=== PATIENT | female | born 1980 | race African-American/Black ===

== ENCOUNTER 2018-05-13 06:21 | Inpatient (IN) ==
[2018-05-13] MEDS ORDERED: MEPERIDINE 50 MG/1 ML VIAL IV PRN (06:35)
[2018-05-13] MEDS ORDERED: ONDANSETRON 4 MG/2 ML VIAL IV PRN ×2 (06:35→20:21)
[2018-05-13 07:00] LABS: Basophils % 0.3 % (0.0-0.8); Eosinophils # 0.1 10*3/uL (0.0-0.87); Eosinophils % 1.1 % (0.00-10.9); Hematocrit 35.8 VOL% (35.7-47.0); Hemoglobin 11.4 GM/DL (12.0-16.0); Immature Granulocytes % 0.6 %; Immature Granulocytes Absolute 0.04 #; Lymphocytes # 2.3 10*3/uL (1.4-4.0); Lymphocytes % 31.6 % (21.3-54.2); Mean Corpuscular HGB Conc 31.8 GM/DL (32-36); Mean Corpuscular Hemoglobin 25 PG (27-34); Mean Platelet Volume 13.6 FL (9.6-12.0); Monocytes % 13.6 % (1.7-12.7); Neutrophils # 3.8 10*3/uL (1.4-7.4); Neutrophils % 52.8 % (38.7-73.9); Platelet Count 171 T/CUMM (130-400); Red Blood Count 4.59 MC/CUMM (3.8-5.5); Red Cell Distribution Width 14.7 % (9.3-17.3); White Blood Count 7.1 T/CUMM (4-12)
[2018-05-13] MEDS ORDERED: OXYTOCIN/LR 20 UNIT/1,000 ML BAG IV SCH (07:00)
[2018-05-13] MEDS: LACTATED RINGERS 1,000 ML IV SCH ×2 (07:04→15:09)
[2018-05-13] MEDS ORDERED: DINOPROSTONE VAG GEL 10 MG SYRINGE VAG ONE ×2 (07:36→07:37)
[2018-05-13] MEDS ORDERED: NALOXONE 0.4 MG/ML VIAL IV PRN (11:26)
[2018-05-13] MEDS ORDERED: ePHEDrine 50 MG/ML AMP IV PRN (11:26)
[2018-05-13] MEDS ORDERED: diphenhydrAMINE 50 MG/1 ML VIAL IV PRN ×2 (11:26)
[2018-05-13] MEDS ORDERED: LACTATED RINGERS 1,000 ML IV ONE (11:26)
[2018-05-13] MEDS ORDERED: CITRIC ACID/SODIUM CITRATE 30 ML UDCUP PO ONE (11:26)
[2018-05-13] MEDS ORDERED: FAMOTIDINE 20 MG/2 ML VIAL IV ONE (11:26)
[2018-05-13] MEDS ORDERED: fentaNYL 2 MCG/ROPIV 0.2% EPID 100 ML EPIDURAL SCH (11:30)
[2018-05-13] MEDS ORDERED: ceFAZolin 2,000 MG in PREMIX 1 EACH IV ONE (19:02)
[2018-05-13] MEDS ORDERED: OXYTOCIN/LR 30 UNIT/1,000 ML BAG IV ONE (19:02)
[2018-05-13] MEDS ORDERED: OXYTOCIN 10 UNIT/ML VIAL IM ONE (19:02)
[2018-05-13] MEDS ORDERED: ceFAZolin 1,000 MG in SYRINGE 1 EACH IV ONE (19:23)
[2018-05-13] MEDS ORDERED: RHO(D) IMMUNE GLOBULIN 300 MCG SYRINGE IM ONE (20:21)
[2018-05-13] MEDS ORDERED: SIMETHICONE CHEW 80 MG TABLET PO PRN (20:21)
[2018-05-13] MEDS ORDERED: OXYTOCIN/LR 20 UNIT/1,000 ML BAG IV ONE (20:21)
[2018-05-13] MEDS ORDERED: MAGNESIUM HYDROXIDE SUSP 30 ML UDCUP PO PRN (20:21)
[2018-05-13] MEDS ORDERED: ACETAMINOPHEN 325 MG TABLET PO PRN (20:21)
[2018-05-13] MEDS ORDERED: PHENYLEPHRINE 1 MG/10 ML SYRINGE IV ONE (20:30)
[2018-05-13] MEDS ORDERED: LACTATED RINGERS 1,000 ML IV SCH (20:30)
[2018-05-13] MEDS ORDERED: LIDOCAINE MPF 2% /EPI 20 ML VIAL ONE (20:30)
[2018-05-13] MEDS ORDERED: fentaNYL 100 MCG/2 ML VIAL ONE (20:30)
[2018-05-13] MEDS: IBUPROFEN 800 MG TABLET PO PRN (22:58)
[2018-05-14] MEDS: DOCUSATE SODIUM 100 MG CAPSULE PO SCH ×4 (02:20→21:29)
[2018-05-14] MEDS: ceFAZolin 1,000 MG in SYRINGE 1 EACH IV SCH ×2 (04:30→12:03)
[2018-05-14 06:40] LABS: Basophils % 0.1 % (0.0-0.8); Eosinophils % 0.1 % (0.00-10.9); Hematocrit 31.2 VOL% (35.7-47.0); Immature Granulocytes % 0.4 %; Immature Granulocytes Absolute 0.05 #; Lymphocytes # 1.6 10*3/uL (1.4-4.0); Lymphocytes % 12.1 % (21.3-54.2); Mean Corpuscular HGB Conc 32.1 GM/DL (32-36); Mean Corpuscular Hemoglobin 25 PG (27-34); Mean Corpuscular Volume 77.6 FL (87-102); Monocytes # 1.3 10*3/uL (0.11-0.8); Monocytes % 9.3 % (1.7-12.7); Neutrophils # 10.5 10*3/uL (1.4-7.4); Platelet Count 147 T/CUMM (130-400); Red Blood Count 4.02 MC/CUMM (3.8-5.5); Red Cell Distribution Width 14.7 % (9.3-17.3); White Blood Count 13.4 T/CUMM (4-12)
[2018-05-14] MEDS: MULTIVITAMIN (PRENATAL) TABLET PO SCH ×2 (07:36→09:47)
[2018-05-14] MEDS: IBUPROFEN 800 MG TABLET PO PRN (14:43)
[2018-05-15] MEDS: IBUPROFEN 800 MG TABLET PO PRN (07:12)
[2018-05-15] MEDS: DOCUSATE SODIUM 100 MG CAPSULE PO SCH (08:00)
[2018-05-15] MEDS: MULTIVITAMIN (PRENATAL) TABLET PO SCH (08:00)
[2018-05-15] MEDS ORDERED: METOCLOPRAMIDE 10 MG TABLET PO PRN (08:46)
[2018-05-15] MEDS ORDERED: MAGNESIUM CITRATE 300 ML BOTTLE PO ONE (10:37)
[2018-05-15 11:14] VITALS: BP 129/72
[2018-05-15] MEDS ORDERED: DIPH/TET/ACEL PERT BOOSTER VACCINE 0.5 ML VIAL IM ONE ×2 (11:18→11:22)
[2018-05-15] MEDS ORDERED: BISACODYL 10 MG SUPP RECTAL ONE (12:48)
== END 2018-05-15 15:25 | disposition home or self-care (01) | DRG 540 ==
LOC: N.LDOUT 06:21 → N.LD 06:22 → N.OB 23:15
PROVIDERS: ADMIT Obstetrics & Gynecology; ATTEND Obstetrics & Gynecology
PROC: LDCSECT (ICD-10-PCS; 2018-05-13 19:00)